=== PATIENT | male | born 1965 | race Caucasian/White ===

== ENCOUNTER → 2017-05-04 | Outpatient (CLI) | payer BC ==
[~2017-05-04] MED LIST: AMLODIPINE BESY10 MG PO; ATORVASTATIN CA20 MG PO; BACITRACIN 50,000 UNIT VIAL ONE; CLONIDINE HCL0.2 MG PO; CLONIDINE PATCH TD; DIAZEPAM5 MG PO; DIOVAN160 MG PO; FENOFIBRATE145 MG PO; GELATIN SPONGE SZ 100 ONE; LAMOTRIGINE100 MG PO; LIDOCAINE 1% W/EPINEPHRINE 20 ML VIAL ONE; NIASPAN1000 MG PO; THROMBIN FOR SOLN 5,000 UNIT VIAL ONE
--- NOTE | 2017-05-04 18:20 | Diagnostic Imaging Report ---
Examination: MRI of the Cervical Spine without Contrast History: Neck pain radiating down the right arm with numbness and weakness. Comparison studies: None Technique: Sagittal T1, T2 and IR, axial T2 and axial gradient echo Intravenous contrast: None Findings: Airway: Patent. Alignment: Normal lordosis. Minimal 3 mm retrolisthesis of C4 on C5. Cervicomedullary junction: No abnormalities. Patent foramen magnum. Soft tissues: There is a 1.4 cm round left level III lymph node. Spinal cord: Normal in size and signal from the foramen magnum through T1. Vertebrae: Normal in height and signal intensity. No fractures, infection or neoplasm. Degenerative changes: There is ossification of the posterior longitudinal ligament from C5-C6 to C7-T1. This is superimposed on spondylosis which results and moderate spinal canal stenosis at these levels as described below. C2-C3: Left asymmetric disc osteophyte complex does not result in spinal canal stenosis. Left uncovertebral arthropathy contributes to moderate left foraminal stenosis. Right foramen is patent. C3-C4: Left asymmetric disc osteophyte complex contacts and flattens the left ventral spinal cord and results in moderate spinal canal stenosis. No abnormal T2 hyperintense signal is seen within the cord. Bilateral uncovertebral arthropathy contributes to severe left and mild right foraminal stenosis. C4-C5: Diffuse disc osteophyte complex contacts and minimally flattens the left ventral spinal cord along with mild ligamentum flavum thickening result in moderate spinal canal stenosis. Bilateral uncovertebral arthropathy contributes to mild left and severe right foraminal stenosis. C5-C6: Diffuse disc osteophyte complex with superimposed ossification of the posterior longitudinal ligament result in moderate spinal canal stenosis. Bilateral uncovertebral arthropathy contributes to moderate right and mild left foraminal stenosis. C6-C7: Asymmetric to the right disc osteophyte complex with superimposed ossification of the posterior longitudinal ligament result in moderate spinal canal stenosis. Bilateral uncovertebral arthropathy contributes to moderate bilateral foraminal stenosis. C7-T1: Asymmetric to the right disc osteophyte complex contacts and flattens the right ventral spinal cord and contributes to mild spinal canal stenosis. Bilateral uncovertebral arthropathy contributes to severe right foraminal stenosis and mild left foraminal stenosis. IMPRESSION: 1. 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 Moderate degenerative spinal canal stenosis at C3-C4 and C4-C5. 3. Severe degenerative foraminal stenosis at C3-C4, C4-C5, C5-C6 and C7-T1 as described. 4. Degenerative 3 mm retrolisthesis of C4 on C5. 5. Incidental mildly enlarged left level III lymph node which is nonspecific. Signed by: Dr. Leyla Salazar M.D. on 05/05/2017 12:05 AM
== END ==
LOC: MRI 15:22
PROVIDERS: ATTEND Neurological Surgery
DX: M50.13 Cervical disc disorder with radiculopathy, cervicothoracic region (principal)
CPT/HCPCS: 72141

== ENCOUNTER 2017-05-05 07:36 | Observation (INO) | payer BC ==
[2017-05-04 16:51] LABS: BASOPHILS # (AUTO) 0.1 (0.0-0.1); BASOPHILS % 0.7 % (0.0-1.0); EOSINOPHILS # (AUTO) 0.5 (0.0-0.4); EOSINOPHILS % 6.9 % (0.0-6.0); HEMATOCRIT 46.3 % (38.2-49.6); LYMPHOCYTES # (AUTO) 1.7 (1.0-3.2); LYMPHOCYTES % 23.1 % (18.0-39.1); MEAN CORPUSCULAR HEMOGLOBIN 29.5 pg (28-32); MEAN CORPUSCULAR HGB CONC 34.6 g/dL (31-35); MEAN CORPUSCULAR VOLUME 85.3 fL (81-99); MONOCYTES # (AUTO) 0.6 (0.2-0.8); MONOCYTES % 8.1 % (4.4-11.3); NEUTROPHILS # (AUTO) 4.3 (2.1-6.9); NEUTROPHILS % 60.6 % (38.7-80.0); PLATELET COUNT 211 x10e3/uL (140-360); RED BLOOD COUNT 5.43 x10e6/uL (4.3-5.7); RED CELL DISTRIBUTION WIDTH 13.1 % (11.7-14.4)
[2017-05-04 17:11] LABS: INR 0.9; PROTHROMBIN TIME 12.6 seconds (11.9-14.5)
[2017-05-04 17:12] LABS: PARTIAL THROMBOPLASTIN TIME 24.3 seconds (23.8-35.5)
[2017-05-04 17:16] LABS: ANION GAP 16.7 mmol/L (8-16); BLOOD UREA NITROGEN 16 mg/dL (7-26); BUN/CREATININE RATIO 14 (6-25); CALCIUM 10.2 mg/dL (8.4-10.2); CARBON DIOXIDE 24 mmol/L (22-29); CHLORIDE 104 mmol/L (98-107); CREATININE, SERUM 1.13 mg/dL (0.72-1.25); EST GLOMERULAR FILTRATION RATE > 60 ML/MIN (60-); GLUCOSE 105 mg/dL (74-118); POTASSIUM 3.7 mmol/L (3.5-5.1); SODIUM 141 mmol/L (136-145)
--- NOTE | 2017-05-04 17:28 | Diagnostic Imaging Report ---
PROCEDURE: Frontal and lateral views of the chest. COMPARISON: None. INDICATIONS: PRE-OP FINDINGS: Lines/tubes: None. Lungs: The lungs are well inflated and clear. There is no evidence of pneumonia or pulmonary edema. Pleura: There is no pleural effusion or pneumothorax. Heart and mediastinum: The heart and the mediastinum are normal. Bones: No acute bony abnormality. IMPRESSION: No acute cardiopulmonary disease. Dictated by: Catracho Rasmussen M.D. on 05/04/2017 at 17:37 Electronically approved by: Catracho Rasmussen M.D. on 05/04/2017 at 17:37
[~2017-05-05] VITALS: Ht 182.9 cm; Wt 97.5 kg
[~2017-05-05 07:36] MED LIST changes: +ACETAMINOPHEN 1000 MG/100 ML 100 ML IV ONE; -BACITRACIN 50,000 UNIT VIAL ONE; -GELATIN SPONGE SZ 100 ONE; -LIDOCAINE 1% W/EPINEPHRINE 20 ML VIAL ONE; +LIDOCAINE HCL (LTA) 4 ML SOLN ONE; -THROMBIN FOR SOLN 5,000 UNIT VIAL ONE
--- OUTSIDE RECORDS SUMMARY | 2017-05-05 07:39 | XMS REPORT ---
Author Author [facility] Address Unknown Phone Unavailable Care Team Providers Care Hospice Care Consultant Name Role Phone JENNIFER GONSALEZ Unavailable Unavailable Problems This patient has no known problems. Allergies, Adverse Reactions, Alerts This patient has no known allergies or adverse reactions. Medications This patient has no known medications. Results Test Description Test Time Test Comments Text Results Atomic Results Result Comments MRI SPINE CERVICAL WO [place] [address] Patient Name: MARIE RODRIGUEZ MR #: [id number] : 1965 Age/Sex: 51/M Req #: [id number] Adm Physician: Ordered by: JENNIFER GONSALEZ MD Report #: [id number] Location: MRI Room/Bed: Procedure: [id number] MRI/MRI SPINE CERVICAL WO Exam Date: Exam Time: REPORT STATUS: Signed Examination: MRI of the Cervical Spine without Contrast History: Neck pain radiating down the right arm with numbness and weakness. Comparison studies: None Technique: Sagittal T1, T2 and IR, axial T2 and axial gradient echo Intravenous contrast : None Findings: Airway: Patent. Alignment: Normal lordosis. Minimal 3 mm retrolisthesis of C4 on C5. Cervicomedullary junction: No abnormalities. Patent foramen magnum. Soft tissues: There is a 1.4 cm round left level III lymph node. Spinal cord: Normal in size and signal from the foramen magnum through T1. Vertebrae: Normal in height and signal intensity. No fractures, infection or neoplasm. Degenerative changes: There is ossification of the posterior longitudinal ligament from C5-C6 to C7-T1. This is superimposed on spondylosis which results and moderate spinal canal stenosis at these levels as described below. C2-C3: Left asymmetric disc osteophyte complex does not result in spinal canal stenosis. Left uncovertebral arthropathy contributes to moderate left foraminal stenosis. Right foramen is patent. C3-C4: Left asymmetric disc osteophyte complex contacts and flattens the left ventral spinal cord and results in moderate spinal canal stenosis. No abnormal T2 hyperintense signal is seen within the cord. Bilateral uncovertebral arthropathy contributes to severe left and mild right foraminal stenosis. C4-C5: Diffuse disc osteophyte complex contacts and minimally flattens the left ventral spinal cord along with mild ligamentum flavum thickening result in moderate spinal canal stenosis. Bilateral uncovertebral arthropathy contributes to mild left and severe right foraminal stenosis. C5-C6: Diffuse disc osteophyte complex with superimposed ossification of the posterior longitudinal ligament result in moderate spinal canal stenosis. Bilateral uncovertebral arthropathy contributes to moderate right and mild left foraminal stenosis. C6-C7: Asymmetric to the right disc osteophyte complex with superimposed ossification of the posterior longitudinal ligament result in moderate spinal canal stenosis. Bilateral uncovertebral arthropathy contributes to moderate bilateral foraminal stenosis. C7-T1: Asymmetric to the right disc osteophyte complex contacts and flattens the right ventral spinal cord and contributes to mild spinal canal stenosis. Bilateral uncovertebral arthropathy contributes to severe right foraminal stenosis and mild left foraminal stenosis. IMPRESSION: 1. 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 Moderate degenerative spinal canal stenosis at C3-C4 and C4- C5. 3. Severe degenerative foraminal stenosis at C3-C4, C4-C5, C5-C6 and C7- T1 as described. 4. Degenerative 3 mm retrolisthesis of C4 on C5. 5. Incidental mildly enlarged left level III lymph node which is nonspecific. Signed by: Dr. Leyla Mendoza M.D. on 05/05/2017 12:05 AM Dictated By : LEYLA BURTON MD 0005 Transcribed By: TONYA on 05/05/17 0005 COPY TO: JENNIFER GONSALEZ MD CHEST 2 VIEWS [place] [address] Patient Name: MARIE RODRIGUEZ MR #: [id number] : 1965 Age/Sex: 51/M Req #: [id number] Adm Physician: Ordered by: JENNIFER GONSALEZ MD Report # : [id number] Location: OR Room/Bed: Procedure: [id number] DX/CHEST 2 VIEWS Exam Date: 05/04/17 Exam Time : 1640 REPORT STATUS: Signed PROCEDURE: Frontal and lateral views of the chest. COMPARISON: None. INDICATIONS: PRE-OP FINDINGS: Lines/tubes: None. Lungs: The lungs are well inflated and clear. There is no evidence of pneumonia or pulmonary edema. Pleura: There is no pleural effusion or pneumothorax. Heart and mediastinum: The heart and the mediastinum are normal. Bones: No acute bony abnormality. IMPRESSION: No acute cardiopulmonary disease. Dictated by: Catracho العراقي M.D. on 05/04/2017 at 17:37 Electronically approved by: Catracho العراقي M.D. on 05/04/2017 at 17:37 Dictated By: CATRACHO العراقي MD 36 Transcribed By: ISRAEL on 05/04/171736 COPY TO: JENNIFER GONSALEZ MD
[2017-05-05] MEDS ORDERED: CEFAZOLIN SOD 2 GM/D5W 50ML 50 ML IV ONE (08:28)
[2017-05-05] MEDS ORDERED: VANCOMYCIN 1GM/NS 250 ML 250 ML ONE (08:56)
[2017-05-05] MEDS: LACTATED RINGER'S 1,000 ML IV SCH ×2 (11:55→20:15)
[2017-05-05] MEDS ORDERED: ACETAMINOPHEN 325 MG TAB PO PRN (12:00)
[2017-05-05] MEDS ORDERED: CEPACOL SORE THROAT LOZENGES PO PRN (12:00)
[2017-05-05] MEDS ORDERED: HYDROMORPHONE 2MG/ML INJ IV PRN (12:00)
[2017-05-05] MEDS ORDERED: MAGNESIUM/ALUMINUM/SIMETHICONE 30 ML UDC PO PRN (12:00)
[2017-05-05] MEDS ORDERED: ONDANSETRON HCL INJ 2 MG/ML VIAL IV PRN (12:00)
[2017-05-05] MEDS ORDERED: MORPHINE SULFATE 5 MG/ML VIAL IM PRN (12:00)
[2017-05-05] MEDS ORDERED: ZOLPIDEM TARTRATE 5 MG TAB PO PRN (12:00)
[2017-05-05] MEDS ORDERED: PROMETHAZINE HCL (IM) 25 MG/ML VIAL IM PRN (12:00)
[2017-05-05] MEDS ORDERED: OXYCODONE/ACETAMINOPHEN 5-325 1 EACH TABLET PO PRN (12:00)
[2017-05-05 13:39] VITALS: BP 144/85
[2017-05-05] MEDS: CARISOPRODOL 350 MG TAB PO PRN ×2 (14:08→18:41)
[2017-05-05 16:00] VITALS: BP 121/78
--- NOTE | 2017-05-05 16:21 | Operative Report ---
DATE OF PROCEDURE: May 05, 2017 PREOPERATIVE DIAGNOSIS: Right C7-T1 disk herniation and spondylosis with C8 radiculopathy, M50.13. POSTOPERATIVE DIAGNOSIS: Right C7-T1 disk herniation and spondylosis with C8 radiculopathy, M50.13. PROCEDURES 1. C7-T1 anterior cervical diskectomy and microsurgical osteophyte resection and allograft fusion, 97110. 2. Preparation of iliac crest allograft, 83343. 3. C7-T1 anterior cervical plate and screw fixation, 01866. ANESTHESIA: General. INDICATIONS: The patient is a man who presents with a right C8 radiculopathy refractory to conservative treatment is found to have multilevel spondylosis, worse at C7-T1 with a combination of a right-sided disk osteophyte complex and a superimposed disk herniation produced compression of the C8 nerve root on the right side. The patient was taken to the operating room for C7-T1 anterior cervical diskectomy and fusion. PROCEDURE: After induction of general anesthesia, the patient was placed on the operating table in the supine position. The right side of the neck was prepped and draped in a sterile fashion. The fluoroscopic C-arm was positioned on cross table lateral orientation. A transverse incision was created on the right side of the neck superimposed on the C7-T1 disk space just above the clavicle. The platysma was divided in line with the incision. A subplatysmal dissection was carried out and avascular plane of dissection was developed medially at the sternocleidomastoid muscle and was followed medial to the carotid sheath to the anterior border of the cervical spine. The deep cervical fascia was opened and the esophagus was retracted to the left. Importantly, the recurrent laryngeal nerve was not encountered or manipulated at any point in this operation. Several disk spaces were encountered above the C7-T1 disk space and C5-6 disk space was localized. This is the lowest disk that could be visualized on lateral fluoroscopy, and was used for the purpose of radiographic confirmation and counting. After C7, T1 localization was confirmed, the attachments of longus coli muscles to the anterolateral aspects of vertebral bodies were divided. The anterior osteophytes were resected. The anterior longitudinal ligament was resected. Bj posts were inserted into C7 and T1 and the Bj distractor was used to distract the disk space. The anterior annulus of the disk was incised with a #11 blade and the contents of the disk were thoroughly evacuated with angled curettes and pituitary rongeurs. The posterior osteophytes were meticulously drilled with a 2-mm cutting bur and a high-speed drill under the operating microscope until they were completely removed. The posterior annulus of the disk, herniated disk material, and the posterior longitudinal ligament were resected layer by layer until the dura was fully exposed and decompressed. The medial aspects of the uncinate processes were resected bilaterally. On the right side, a microball probe was passed into the right C8 neural foramen and used to retrieve a free fragment of disk, which was then grasped with a micropituitary rongeur and removed. This achieved excellent decompression of the right C8 nerve root. The end plates were then prepared for fusion. A piece of Tricortical iliac crest allograft was cut to the size and shape of the disk space and inserted into the disk space under distraction. The distraction was released and the distraction posts were removed. The Synthes CSLP variable type anterior cervical plate was selected and was affixed to the vertebral bodies of C6 and C7 with 2 pairs of 14-mm screws. All screw holes were drilled and tapped first. All screws were locked with the appropriate locking screws. An excellent construct was obtained. The wound was copiously irrigated with Bacitracin solution. Meticulous hemostasis was secured. Retractor was removed. The platysma was closed with 3-0 Vicryl sutures. The skin was closed with 4-0 Monocryl sutures in subcuticular fashion. Steri-Strips and a dry dressing were applied. The patient was awakened, extubated and taken to the post anesthesia care unit in stable condition. No intraoperative complications were encountered. Estimated blood loss was 20 mL. Job#: [id number]
[2017-05-05] MEDS ORDERED: DESFLURANE 240 ML BTL INH ONE (18:31)
[2017-05-05] MEDS ORDERED: DEXAMETHASONE SOD PHOS INJ 4 MG/ML VIAL ONE (18:31)
[2017-05-05] MEDS ORDERED: PROPOFOL IV EMULSION 10 MG/ML 20 ML VIAL ONE (18:31)
[2017-05-05] MEDS ORDERED: GLYCOPYRROLATE INJ 1MG/ 5 ML SYR ONE (18:31)
[2017-05-05] MEDS ORDERED: LIDOCAINE HCL 2% JELLY 5 ML TUBE ONE (18:31)
[2017-05-05] MEDS ORDERED: ROCURONIUM BROMIDE 10 MG/ML 5ML VIAL ONE (18:31)
[2017-05-05] MEDS ORDERED: ONDANSETRON HCL INJ 2 MG/ML VIAL ONE (18:31)
[2017-05-05] MEDS ORDERED: NEOSTIGMINE 5 MG/5ML SYR ONE (18:31)
[2017-05-05] MEDS ORDERED: LIDOCAINE HCL 2% LOCAL INJ 5 ML SDV VIAL INJ ONE (18:31)
[2017-05-05] MEDS ORDERED: FENTANYL CITRATE/PF 100MCG/2 ML INJ ONE (19:08)
[2017-05-05] MEDS ORDERED: MIDAZOLAM HCL 2 MG/2 ML VIAL ONE (19:08)
[2017-05-05 19:30] VITALS: BP 102/59
[2017-05-05 20:00] VITALS: BP 102/59
[2017-05-05] MEDS ORDERED: DIAZEPAM 5 MG TAB PO SCH (21:00)
[2017-05-05] MEDS ORDERED: ATORVASTATIN 20 MG TAB PO SCH (21:00)
[2017-05-06] VITALS: BP 115/64
[2017-05-06] MEDS: CARISOPRODOL 350 MG TAB PO PRN ×2 (03:25→09:30)
[2017-05-06 04:00] VITALS: BP 117/66
[2017-05-06] MEDS: LACTATED RINGER'S 1,000 ML IV SCH (04:11)
[2017-05-06 08:04] VITALS: BP 139/73
--- NOTE | 2017-05-06 08:17 | Diagnostic Imaging Report ---
PROCEDURE: X-RAY CERVICAL SPINE, TWO VIEWS COMPARISON:None. INDICATIONS:POST SURGERY C-SPINE FINDINGS: See conclusion. CONCLUSION: AP and lateral views of the cervical spine from the skull base to C6 show anterior cervical spine surgical fusion from C7/T1 with intervertebral body disc spacers. The visualized vertebral bodies are well-aligned. There is mild pre-vertebral soft-tissue swelling consistent with recent surgery. Dictated by: Stew Parks M.D. on 05/06/2017 at 8:26 Electronically approved by: Stew Parks M.D. on 05/06/2017 at 8:26
[2017-05-06] MEDS ORDERED: NIACIN 2000 MG PO SCH (09:00)
[2017-05-06] MEDS ORDERED: AMLODIPINE BESYLATE 10 MG TAB PO SCH (09:00)
[2017-05-06] MEDS ORDERED: LAMOTRIGINE 100 MG TAB PO SCH (09:00)
[2017-05-06] MEDS ORDERED: ATORVASTATIN 20 MG TAB PO SCH (09:00)
[2017-05-06] MEDS ORDERED: VALSARTAN 160 MG TAB PO SCH (09:00)
[2017-05-06] MEDS ORDERED: FENOFIBRATE 145 MG TAB PO SCH ×2 (09:00)
[2017-05-06] MEDS ORDERED: NIACIN 500 MG TABSR PO SCH (09:00)
[2017-05-06] MEDS ORDERED: DIAZEPAM 5 MG TAB PO SCH (09:00)
[2017-05-06 09:36] VITALS: BP 139/73
== END 2017-05-06 13:10 | disposition home or self-care (01) ==
LOC: OR 07:36 → MED/SURG 13:53
PROVIDERS: ADMIT Neurological Surgery; ATTEND Neurological Surgery
DX: M50.13 Cervical disc disorder with radiculopathy, cervicothoracic region (principal); I10 Essential (primary) hypertension; E78.5 Hyperlipidemia, unspecified; I48.91 Unspecified atrial fibrillation; Z98.84 Bariatric surgery status; Z88.0 Allergy status to penicillin
CPT/HCPCS: 20931; 22551; 22845; 36415; 71046; 72040; 77003; 80048; 85025; 85610; 85730; 86850; 86900; 88304; 93005; C1713 ×4; C1768; G0378 ×2; J1100; J1170; J2001 ×2; J2250; J2405; J3370